=== PATIENT | female | born 1970 | race Caucasian/White ===

== ENCOUNTER 2017-12-31 14:40 | Emergency (ER) | payer OTHER ==
[~2017-12-31] VITALS: Ht 165.1 cm; Wt 111.1 kg
[~2017-12-31 14:40] MED LIST: Bactrim 400-801 EACH PO; HYDACE5 PO; Norco 5-325 Ta1 EACH PO
[2017-12-31] MEDS ORDERED: CETI5 PO (14:55)
== END 2017-12-31 15:05 | disposition home or self-care (01) ==
LOC: ER 14:40
DX: R04.0 Epistaxis (principal); Z88.8 Allergy status to other drugs, medicaments and biological substances

== ENCOUNTER 2025-06-04 12:40 | Inpatient (IN) | payer SELFPAY ==
[~2025-06-04] VITALS: Ht 165.1 cm; Wt 96.6 kg
[~2025-06-04 12:40] MED LIST changes: +CETI5 PO
[2025-06-04] MEDS ORDERED: HydrALAZINE HCl 20 MG / ML 1ML Vial IV ONE (13:35)
[2025-06-04 13:41] LABS: BASOPHILS ABSOLUTE AUTO 0.04 K/mm3 (0.00-0.23); BASOPHILS PERCENT AUTO 0 % (0-2); EOSINOPHILS ABSOLUTE AUTO 0.07 K/mm3 (0.00-0.68); EOSINOPHILS PERCENT AUTO 1 % (0-6); Hematocrit 42.2 % (33.0-51.0); Hemoglobin 13.6 g/dL (11.5-16.0); IMMATURE GRAN ABSOLUTE AUTO 0.06 K/mm3 (0.00-0.10); IMMATURE GRAN PERCENT AUTO 1 % (0-1); LYMPHOCYTES ABSOLUTE AUTO 2.57 K/mm3 (0.84-5.20); LYMPHOCYTES PERCENT AUTO 25 % (21-46); MONOCYTES ABSOLUTE AUTO 0.63 K/mm3 (0.16-1.47); MONOCYTES PERCENT AUTO 6 % (4-13); Mean Corpuscular HGB Conc 32.2 g/dL (31.5-36.5); Mean Corpuscular Volume 92 fL (80-100); NEUTROPHILS ABSOLUTE AUTO 6.77 K/mm3 (1.96-9.15); NEUTROPHILS PERCENT AUTO 67 % (41-73); NRBC ABSOLUTE 0.00 K/mm3 (0.00-0.02); NRBC Auto 0.0 /100 WBC (0.0-0.2); Platelet Count 262 K/mm3 (150-400); RDW Coefficient Variation 13.1 % (11.7-14.2); RDW Standard Deviation 43.8 fL (35.1-46.3)
[2025-06-04 14:02] LABS: Alanine Aminotransfer (ALT/SGP 22.0 U/L (12-78); Albumin, Blood 3.2 g/dL (3.4-5.0); Albumin/Globulin Ratio 0.8 (0.8-1.8); Anion Gap 8.0 mmol/L (3-11); Aspartate Aminotrans (AST/SGOT 12.0 U/L (12-37); Bilirubin, Total 0.4 mg/dL (0.1-1.0); Blood Urea Nitrogen 19.0 mg/dL (8-24); CO2, Blood 23.0 mmol/L (21-32); Calcium, Blood 9.1 mg/dL (8.5-10.1); Chloride, Blood 107.0 mmol/L (98-108); Creatinine, Blood 0.77 mg/dL (0.40-1.00); Globulin, Blood 4.2 g/dL (2.2-4.0); Glucose, Blood 283.0 mg/dL (70-99); Potassium, Blood 3.8 mmol/L (3.5-5.5); Sodium, Blood 134.0 mmol/L (136-145); Total Protein, Blood 7.4 g/dL (6.4-8.2)
[2025-06-04] MEDS ORDERED: FLU VACC TS2025-26(6MOS UP)/PF 45 MCG/0.5 ML SYRINGE IM SCH (15:30)
[2025-06-04] MEDS ORDERED: Labetalol HCL 5 MG/ML 4ML Injection (Single Dose) IV PRN (15:40)
[2025-06-04 16:12] LABS: CHOL/HDL RATIO 6.8; Cholesterol 349 mg/dL (50-200); HDL Cholesterol 51 mg/dL (>39); LDL/HDL RATIO 4.3; Low Density Lipoprotein Chol 220 mg/dL (0-110); Triglycerides 391 mg/dL (30-160); Very Low Density Lipoprot Chol 78 mg/dL (6-32)
[2025-06-04 18:18] VITALS: BP 176/82
--- NOTE | 2025-06-04 19:26 | NUR ---
ADMIT NOTE PT A&OX4. PT ADMITTED DUE TO HTN EMERGENCY. PT REPORTS CHRONIC PAIN. PT REPORTS NO SOB AND NO CHEST PAIN. LAST BLOOD PRESSURE WAS 176/82. PT ON TELE, NO TELE REPORTS. PT ACHS. PT REPORTS R SIDE WEAKNESS. PT ORIENTED TO CALL LIGHT/ FALL PRECAUTIONS/UNIT. SECOND RN SKIN CHECK COMPLETE WITH DESMOND CHRISTIANSON RN. BRUISING NOTED ON LEGS. PT REPORTS "FALL A WEEK AGO AT WORK." PT HAS RED AND ESCORIATION AT GROIN, LET NIGHT RN KNOW SHE COULD BENIFIT FROM ANTIFUNGAL POWDER. PLAN IS ECHO AND MRI TOMORROW. QUICK ADMIT AND INITIAL ADMISSION SCREENING COMPLETE. LET NIGHT RN KNOW HX ADULT AND ASSESSMENT NEEDS COMPLETED. THIS RN RECONSILED PT MEDS. PT BED ALARM ON DUE TO IMPULSIVITY. PT HAS BEDREST WITH BATH PRIVILEDGE ORDERS. PT IN BED, BED LOCKED IN LOWEST POSITION, CALL LIGHT IN REACH.
[2025-06-04 20:05] VITALS: BP 141/76
[2025-06-05] MEDS ORDERED: Ketorolac Tromethamine 15mg Vial IV ONE (01:05)
[2025-06-05 01:09] VITALS: BP 151/79
--- NOTE | 2025-06-05 04:11 | NUR ---
SHIFT SUMMARY 55 YR F ADMITTED ON 06/04/25. DNR. NO ACUTE CHANGES THIS SHIFT. PT STATED SHE WAS HAVING ALLERGY SX AND TAKES BENADRYL AT HOME, HOSPITALIST WAS NOTIFIED AND ORDER PUT IN. PT ALSO STATED THAT SHE HAS CHRONIC PAIN AND TAKES IBUPROFEN AT HOME- 4800MG-7200 MG DAILY. PT WAS EDUCATED ON THE AFFECTS OF OVERUSE OF IBUPROFEN. HOSPITALIST NOTIFIED OF PT'S NEED FOR PAIN MEDS AND GAVE AN ORDER FOR 1 TIME DOSE TORIDOL AND TYLENOL Q4. pt was scheduled for echo and mri in a.m. but orders were cancelled with the reason being "patient departed". this is currently being looked into. PT IS A&O X 4 AND IS ABLE TO MAKE HER NEEDS KNOWN. PT STATES THAT THE NUMBNESS IN HER RIGHT ARM IS CHRONIC AND THAT HER RIGHT LEG IS FEELING "ALMOST NORMAL" AGAIN. NEURO CHECKS HAVE BEEN WNL. BED IN LOW POSITION AND CALL LIGHT IN REACH.
[2025-06-05 05:21] VITALS: BP 152/77
[2025-06-05 05:34] LABS: BASOPHILS ABSOLUTE AUTO 0.03 K/mm3 (0.00-0.23); BASOPHILS PERCENT AUTO 0 % (0-2); EOSINOPHILS ABSOLUTE AUTO 0.12 K/mm3 (0.00-0.68); EOSINOPHILS PERCENT AUTO 1 % (0-6); Hematocrit 39.6 % (33.0-51.0); Hemoglobin 13.0 g/dL (11.5-16.0); IMMATURE GRAN ABSOLUTE AUTO 0.05 K/mm3 (0.00-0.10); IMMATURE GRAN PERCENT AUTO 1 % (0-1); LYMPHOCYTES ABSOLUTE AUTO 2.99 K/mm3 (0.84-5.20); LYMPHOCYTES PERCENT AUTO 36 % (21-46); MONOCYTES ABSOLUTE AUTO 0.62 K/mm3 (0.16-1.47); MONOCYTES PERCENT AUTO 7 % (4-13); Mean Corpuscular HGB Conc 32.8 g/dL (31.5-36.5); Mean Corpuscular Volume 91 fL (80-100); NEUTROPHILS ABSOLUTE AUTO 4.61 K/mm3 (1.96-9.15); NEUTROPHILS PERCENT AUTO 55 % (41-73); NRBC ABSOLUTE 0.00 K/mm3 (0.00-0.02); NRBC Auto 0.0 /100 WBC (0.0-0.2); Platelet Count 251 K/mm3 (150-400); RDW Coefficient Variation 13.2 % (11.7-14.2); RDW Standard Deviation 43.8 fL (35.1-46.3)
[2025-06-05 05:34] LABS: Source, Urine Clean Catch
[2025-06-05 05:59] LABS: Anion Gap 11.0 mmol/L (3-11); Blood Urea Nitrogen 20.0 mg/dL (8-24); CO2, Blood 22.0 mmol/L (21-32); Calcium, Blood 8.7 mg/dL (8.5-10.1); Chloride, Blood 108.0 mmol/L (98-108); Creatinine, Blood 0.55 mg/dL (0.40-1.00); Glucose, Blood 251.0 mg/dL (70-99); Magnesium, Blood 1.7 mg/dL (1.6-2.4); Potassium, Blood 3.5 mmol/L (3.5-5.5); Sodium, Blood 137.0 mmol/L (136-145)
[2025-06-05 06:07] LABS: Bilirubin, Urine Neg (Neg); Color, Urine Yellow (P-Yellow); Glucose Qualitative, Urine 4+ (Neg); Ketones, Urine Neg (Neg); Leukocyte Esterase, Urine Neg (Neg); Protein, Urine 1+ (Neg); Specific Gravity, Urine 1.020 (1.003-1.022); Urobilinogen, Urine NORM (Normal)
[2025-06-05 06:21] LABS: U Amphetamine Screen Not Detected; U Barbiturate Screen Not Detected; U Benzodiazapine Screen Not Detected; U Buprenorphine Screen Not Detected; U Cannabinoids Screen Not Detected; U Cocaine Screen Not Detected; U Methadone Screen Not Detected; U Methamphetamine Screen Not Detected; U Opiates Screen Not Detected; U Oxycodone Screen Not Detected; U Phencyclidine Screen Not Detected
[2025-06-05] MEDS ORDERED: Insulin Regular 100 UNIT/ML 10ML Vial SC SCH (07:30)
[2025-06-05 07:44] VITALS: BP 166/87
[2025-06-05] MEDS ORDERED: Enoxaparin 40 MG/0.4 ML SYR SC SCH (09:00)
[2025-06-05 11:23] VITALS: BP 149/85
[2025-06-05 15:21] VITALS: BP 166/87
[2025-06-05] MEDS ORDERED: Insulin Glargine 100 Unit/ML 3 ML SYR SC ONE (18:00)
--- NOTE | 2025-06-05 18:38 | NUR ---
SHIFT SUMMARY PT A&OX5, VSS WITH HTN, SR IN 70S ON TELE, RA. RT SIDED WEAKNESS IMPROVED, NEUROPATHY HAS BEEN ONGOING FOR THE PAST FOUR YEARS. MRI SHOWED ACUTE INFARCT, ECHO SHOWED EF OF 55-60%. LIPITOR, PLAVIX, ASA STARTED TODAY, CT ANGIO ORDERED, NOT YET DONE. PT EDUCATED ON IMPORTANCE OF TAKING ALL MEDICATIONS PRESCRIBED. A1C 11.8, EDUCATION PROVIDED AND INSULIN CONT. PT STATES EXPERIENCE WITH CARING FOR HER DIABETIC MOTHER. PT PLEASANT AND COOPERATIVE WITH CARES, CALL LIGHT IN REACH.
[2025-06-05 20:22] VITALS: BP 119/55
[2025-06-05] MEDS ORDERED: Insulin Human Lispro 100 Units/ML 3ML Syringe SC SCH (21:00)
--- NOTE | 2025-06-05 23:29 | NUR ---
REPORT RECEIVED FROM JAROCHO Chacon @[phone]. ASSUMING CARE. BED AT THE LOWEST POSITION, CALL LIGHT W/I REACH.
[2025-06-06 00:09] VITALS: BP 127/55
[2025-06-06 04:38] VITALS: BP 161/93
[2025-06-06 07:41] VITALS: BP 140/86
[2025-06-06 08:18] LABS: BASOPHILS ABSOLUTE AUTO 0.03 K/mm3 (0.00-0.23); BASOPHILS PERCENT AUTO 0 % (0-2); EOSINOPHILS ABSOLUTE AUTO 0.11 K/mm3 (0.00-0.68); EOSINOPHILS PERCENT AUTO 1 % (0-6); Hematocrit 41.3 % (33.0-51.0); Hemoglobin 13.8 g/dL (11.5-16.0); IMMATURE GRAN ABSOLUTE AUTO 0.04 K/mm3 (0.00-0.10); IMMATURE GRAN PERCENT AUTO 1 % (0-1); LYMPHOCYTES ABSOLUTE AUTO 2.70 K/mm3 (0.84-5.20); LYMPHOCYTES PERCENT AUTO 35 % (21-46); MONOCYTES ABSOLUTE AUTO 0.55 K/mm3 (0.16-1.47); MONOCYTES PERCENT AUTO 7 % (4-13); Mean Corpuscular HGB Conc 33.4 g/dL (31.5-36.5); Mean Corpuscular Volume 92 fL (80-100); NEUTROPHILS ABSOLUTE AUTO 4.33 K/mm3 (1.96-9.15); NEUTROPHILS PERCENT AUTO 56 % (41-73); NRBC ABSOLUTE 0.00 K/mm3 (0.00-0.02); NRBC Auto 0.0 /100 WBC (0.0-0.2); Platelet Count 257 K/mm3 (150-400); RDW Coefficient Variation 13.1 % (11.7-14.2); RDW Standard Deviation 43.6 fL (35.1-46.3)
[2025-06-06 08:41] LABS: Anion Gap 12.0 mmol/L (3-11); Blood Urea Nitrogen 18.0 mg/dL (8-24); CO2, Blood 19.0 mmol/L (21-32); Calcium, Blood 8.7 mg/dL (8.5-10.1); Chloride, Blood 108.0 mmol/L (98-108); Creatinine, Blood 0.49 mg/dL (0.40-1.00); Glucose, Blood 285.0 mg/dL (70-99); Potassium, Blood 4.0 mmol/L (3.5-5.5); Sodium, Blood 135.0 mmol/L (136-145)
[2025-06-06 11:18] VITALS: BP 146/74
[2025-06-06] MEDS ORDERED: ASPI81CH PO (15:09)
[2025-06-06] MEDS ORDERED: ATOR80 PO (15:10)
[2025-06-06] MEDS ORDERED: CLOP75 PO (15:10)
[2025-06-06] MEDS ORDERED: INSULANPEN SC (15:10)
[2025-06-06] MEDS ORDERED: AMLO5 PO (15:11)
[2025-06-06 15:37] VITALS: BP 136/80
--- NOTE | 2025-06-06 18:12 | NUR ---
Patient discharged home with sister. All belongings in patient possession at time of discharge. Education/instruction discussed with patient prior to her leaving. Rx orders faxed to [facility] per patient preference. Patient declined use of wheelchair and walked out to car.
[2025-06-06] MEDS ORDERED: Insulin Glargine 100 Unit/ML 3 ML SYR SC SCH (21:00)
== END 2025-06-06 15:00 | disposition home or self-care (01) | DRG 66 ==
LOC: ER 12:40 → MEDS 12:41 → ER 18:00 → MEDS 18:00
PROVIDERS: Student in an Organized Health Care Education/Training Program; ADMIT Hospitalist
DX: I63.40 Cerebral infarction due to embolism of unspecified cerebral artery (principal); I10 Essential (primary) hypertension; E78.5 Hyperlipidemia, unspecified; R20.2 Paresthesia of skin; E11.65 Type 2 diabetes mellitus with hyperglycemia; Z88.8 Allergy status to other drugs, medicaments and biological substances
CPT/HCPCS: 36415; 70450; 70496; 70498; 70551; 80048; 80053; 80061; 82947; 83036; 83735; 84443; 84484; 85025; 93005; 93010; 93306; 96372; 96374; 96375; 99285-25; A9270; G0378; J0360; J1650; J1815; J1885; Q9967